=== PATIENT | female | born 1945 | race Caucasian/White ===

== ENCOUNTER 2017-09-18 00:46 | Inpatient (IN) | payer MEDICARE, OTHER ==
[2017-09-17 14:51] LABS: INR 1.01
[~2017-09-18] VITALS: Ht 157.5 cm; Wt 57.2 kg
[2017-09-18] VITALS (13 sets, daily range): BP systolic 80–150; BP diastolic 44–90
[~2017-09-18 00:46] MED LIST: ACET500T68 PO; ATOR20TA22 PO; BIMA2.5D5 OS; BRIM5DRO8 OS; DORZ10DR8 OS; ENAL2.5T52 PO; FLAX100041 PO; INSTAFLEX PO; LACT1CAP4 PO; OMEG-11 PO; PREVAGEN PO; TIMO5DRO8 OS; TRAM-420 PO
--- NOTE | 2017-09-18 04:43 | LEVENE H&P ---
DATE OF ADMISSION: September 18, 2017 IDENTIFICATION/CHIEF COMPLAINT The patient is a 72-year-old woman with a chief complaint of right knee pain. HISTORY OF PRESENT ILLNESS Patient has a longstanding history of knee arthritis, progressively painful and debilitating, refractory to conservative care. Surgery is indicated to relieve symptoms after failure of nonoperative measures. PAST MEDICAL HISTORY Notable for hypertension controlled on medication. ALLERGIES BACITRACIN OINTMENT. CURRENT MEDICATIONS 1. Tramadol as needed. 2. Enalapril 2.5 mg per day. 3. Atorvastatin 20 mg p.o. daily. 4. Timolol eye drops 5 mg. 5. Dorzolamide eye drops 10 mL. 6. Brimonidine tartrate 10 mL. 7. Lumigan 2.5 mL at night. PAST SURGICAL HISTORY Notable for carpal tunnel release x two, rotator cuff surgery and cataract operation. She does have a remote history of an MRSA treated with five surgeries. SOCIAL HISTORY Negative for tobacco and alcohol use. FAMILY HISTORY Notable for mother with arthritis and father with heart disease. REVIEW OF SYSTEMS Noncontributory. PHYSICAL EXAMINATION GENERAL: This is a healthy female. HEENT: Normocephalic, atraumatic. NECK: Supple. LUNGS: Clear. HEART: Regular. ABDOMEN: Soft. ORTHOPEDIC EXAMINATION: The right knee is stiff at end range of motion. Effusion is present. Skin condition is good. Extensor function is intact. Knee is grossly stable. RADIOGRAPHIC DATA Radiographs demonstrate end-stage knee arthritis. ASSESSMENT Right knee end-stage degenerative joint disease, progressively painful and debilitating, refractory to conservative care. PLAN Per patient request, we are going to proceed with total knee arthroplasty. The nature of this procedure, risks, benefits, the anticipated rehabilitative course were reviewed. Risks of the procedure include but are not limited to , major medical or anesthetic complication, infection, neurovascular injury , blood transfusion, stiffness, scarring, fracture, tendon rupture, instability , implant loosening, migration or failure, persistent or recurrent pain, need for additional surgery and other unforeseen. She understands and wishes to proceed. A signed permit is placed in the chart. No guarantees are given or implied. [facility]
[2017-09-18] MEDS ORDERED: ACETAMINOPHEN 500 MG TAB PO ONE (07:48)
[2017-09-18] MEDS ORDERED: PROPOFOL EMUL(*) 10MG/ML 20 ML 20 ML ONE (07:50)
[2017-09-18] MEDS ORDERED: DEXAMETHASONE SOD 4 MG/ML VIAL ONE (07:50)
[2017-09-18] MEDS ORDERED: METOCLOPRAMIDE 10 MG/2 ML SDV ONE (07:50)
[2017-09-18] MEDS ORDERED: ONDANSETRON 4 MG/2 ML VIAL ONE (07:50)
[2017-09-18] MEDS ORDERED: fentaNYL CITR 100 MCG/2 ML AMP ONE (07:55)
[2017-09-18] MEDS ORDERED: VANCOMYCIN 1 GM ADDVIAL 1 GM in NS(*) 0.9% 250 ML ADDVAN BAG 250 ML IVPB ONE (10:00)
[2017-09-18] MEDS ORDERED: DIAZEPAM 5 MG TAB PO PRN (12:00)
[2017-09-18] MEDS ORDERED: FLUSH 10 ML SYR IVP PRN (12:00)
[2017-09-18] MEDS ORDERED: diphenhydrAMINE 25 MG CAP PO PRN (12:00)
[2017-09-18] MEDS ORDERED: PROMETHAZINE 25 MG/ML 1 ML AMP IVP PRN (12:00)
[2017-09-18] MEDS ORDERED: ACETAMINOPHEN 325 MG TAB PO PRN (12:00)
[2017-09-18] MEDS ORDERED: NORMOSOL R SOLN(*) 1000 ML BAG 1,000 ML IV PRN ×3 (12:00→12:15)
[2017-09-18] MEDS ORDERED: diphenhydrAMINE 50 MG/ML VIAL IVP PRN (12:00)
[2017-09-18] MEDS ORDERED: ZOLPIDEM TARTRATE 5 MG TAB PO PRN (12:00)
[2017-09-18] MEDS ORDERED: BENZOCAINE/MENTHOL 1 EACH LOZG PO PRN (12:00)
[2017-09-18] MEDS ORDERED: BISACODYL 10 MG SUPP PR PRN (12:00)
[2017-09-18] MEDS ORDERED: MORPHINE 2 MG/ML SYR IVP PRN (12:00)
[2017-09-18] MEDS ORDERED: CELECOXIB 200 MG CAP PO ONE (12:15)
[2017-09-18] MEDS ORDERED: MIDAZOLAM 2 MG/2 ML VIAL IVP PRN (12:15)
[2017-09-18] MEDS ORDERED: PREGABALIN 75 MG CAPSULE PO ONE (12:15)
[2017-09-18] MEDS ORDERED: LIDOCAINE/SOD BICARB 8.4% SYR ID ONE (12:15)
[2017-09-18] MEDS ORDERED: FAMOTIDINE 20 MG TAB PO ONE (12:15)
[2017-09-18] MEDS ORDERED: TRANEXAMIC AC 1000 MG/10ML SDV 1,000 MG in DEXTROSE 5% 50 ML BAG 50 ML IV ONE (12:15)
[2017-09-18] MEDS ORDERED: cloNIDine EPIDUR INJ 100MCG/ML 40 MCG, ROPIVACAINE 0.5% 20 ML VIAL 25 ML, EPINEPHrine H... INJ ONE (12:15)
--- NOTE | 2017-09-18 13:43 | LEVENE TKA ---
EVENT DATE: September 18, 2017 SURGEON: Aaron Zhao MD ANESTHESIA: General plus spinal. INK TECHNICIAN: Pietro Castillo PA-C PREOPERATIVE DIAGNOSIS Right knee degenerative joint disease (DJD). POSTOPERATIVE DIAGNOSIS Right knee degenerative joint disease (DJD). PROCEDURE PERFORMED Right total knee arthroplasty. ESTIMATED BLOOD LOSS Minimal. DRAINS None. SPECIMENS None. COMPLICATIONS None. TOURNIQUET TIME 51 minutes. IMPLANTS USED [employer] Triathlon knee system, a size 4 right PS femur, a size 4 standard tibial baseplate, a 33 mm universal symmetric all polyethylene patella button, a 13 mm PS tibial tray insert, X3 polyethylene. INDICATIONS The patient is 72-year-old woman with intractable pain related to end-stage knee arthritis. Surgery is indicated to relieve symptoms after failure of nonoperative measures. DESCRIPTION OF PROCEDURE The patient was taken to the operating room and placed supine on the operating table. A spinal block was administered by the anesthesiologist. General anesthesia was induced. Antibiotics and TXA were administered IV. The right lower extremity was prepped and draped in the usual sterile fashion for orthopedic surgery. The limb was exsanguinated with an Esmarch bandage. The tourniquet was inflated to 250 mmHg. A midline longitudinal incision was made and carried down through the skin and subcutaneous tissue to the extensor mechanism. A full-thickness flap was developed far enough medially to allow medial parapatellar arthrotomy to be performed. The patella was everted. The knee was brought into a flexed position. The fat pad, anterior horns of the menisci and cruciate ligaments were debrided. Subperiosteal capsular release was performed circumferentially around the upper plateau and medial release performed. A step drill was used to enter the distal femur. A 10-inch long alignment guide was used to engage the isthmus. Cut set for 6 degrees of valgus over the anatomic axis. A 10 mm resection block was applied and pinned and cut was made with an oscillating saw. The patient has a very complex deformity. 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 The epicondylar axis is identified for rotational alignment and marked neutral to 3 degrees of external rotation is selected. The posterior condyles cannot be utilized due to the hypoplasia of the lateral femoral condyle. A size 4 was optimal without risk of notching. The four-in-one cutting block was pinned. Anterior, posterior, posterior chamfer and anterior chamfer cuts were made respectively. A PS block was applied and centered mediolateral and the bone was removed for the box. The trial femur had nice [id number] fit. Attention was turned to tibial preparation. The extramedullary guide was applied and positioned for varus, valgus, posterior slope and rotation. This is set to take 9 mm off the intact lateral tibial plateau. The block was pinned. Extramedullary check was made and the cut was made with an oscillating saw. After osteophyte removal and removal of loose debris and copious scar tissue, gaps were balanced and symmetric with no additional formal releases required. The size 4 tibial base provides good coverage without soft tissue overhang. There is some mild posterior lateral overhang but this is felt better due to severe osteopenia and risks of implant subsidence with an undersized component. This was inserted along with trial femur and the knee was brought to full extension. The patella was taken from a severely everted position. The small fractured ossicles at the lateral margin were removed from the soft tissue and then a free hand cut is made basically just above the tendon leaving about 12-15 mm of residual patella. A 33 button provides optimal bony coverage without soft tissue overhang. The lug holes were drilled. The patella tracks nicely with the no-touch technique. Final tibial preparation consisted of ensuring appropriate rotational and translational position of the component. The box was reamed and fin was punched. The surface was lavaged. A mix of polymethylmethacrylate was made and the components were cemented in a single stage. After the cement was fully polymerized, the tourniquet was deflated. Hemostasis was assured. The wound was copiously lavaged. The 13 PS tibial tray liner allows the knee to drop to full extension without hyperextension and provides optimal soft tissue balance and stability. The tray was lavaged and dried and the liner was locked into the baseplate. The joint was reduced. The arthrotomy was closed with #2 Ethibond, the subcutaneous with 3-0 Vicryl and the skin with surgical sun. Xeroform was applied followed by a dry, sterile dressing and a compression wrap. The patient was awakened from the anesthesia and taken to the recovery room in stable condition, having tolerated the procedure well. Plan for standard TKA rehab protocol. [facility]
--- NOTE | 2017-09-18 14:18 | RADIOLOGY IMAGING REPORT ---
FACILITY: [facility] PATIENT NAME: Lindsay Zambrano : 1945 MR: [id number] V: [id number] EXAM DATE: ORDERING PHYSICIAN: SAURABH ARMSTRONG TECHNOLOGIST: Location: [facility] Patient: Lindsay Zambrano : 1945 Visit/Account:[id number] Date of Sevice: 09/18/2017 Exam type: KNEE LIMITED RIGHT History: S/P TOTAL KNEE ARTHROPLASTY CHECK PLACEMENT Comparison: None. Findings: AP and lateral views of the right knee demonstrate a right knee arthroplasty in good anatomic alignme nt. Soft tissue gas and skin sun project over the anterior aspect of the right knee IMPRESSION: 1. As above Report Dictated By: Hilary Lynn MD at 09/18/2017 2:11 PM Report E-Signed By: Hilary Lynn MD at 09/18/2017 2:12 PM WSN:[id number]
[2017-09-18] MEDS: APAP/HYDROCODONE 325/7.5 TAB PO PRN ×2 (15:11→20:37)
--- NOTE | 2017-09-18 15:54 | Hospitalist Progress Note ---
Subjective Progress Notes Subjective No cp/sob. 1700cc of crystalloid, TXA, ephedrine, and dexamethasone given intra -op. Lowest pressure was 70/40, intra-op. Physical Exam Vital Signs Date Time Temp Pulse Resp B/P (MAP) Pulse Ox O2 Delivery O2 Flow Rate FiO2 09/18/17 15:00 80 129/76 (93) 95 09/18/17 14:09 Nasal Cannula 0.5 09/18/17 13:58 97.7 20 Intake and Output 09/19/17 07:00 Intake Total 2175 ml Balance 2175 ml Intake Oral 300 ml IV Total 1875 ml # Voids 1 General Appearance: Alert, Awake, No Acute Distress Cardiovascular: Regular Rate and Rhythm Respiratory: Clear to Auscultation Extremities: No Edema Assessment and Plan Problems: (1) Status post knee replacement Status: Acute Assessment & Plan: No CV/pulmonary issues. The patient denies a h/o DVT/PE, but has had gastric ulcer related to NSAIDs. She will be on Xarelto for VTE prophylaxis. (2) HTN (hypertension) Status: Chronic Assessment & Plan: Continue chronic enalapril with parameters. (3) Glaucoma Status: Chronic Assessment & Plan: Continue chronic Lumigan, Brimonidine, and Dorzolamide/ Timolol eye drops. (4) Hyperlipemia Status: Chronic Assessment & Plan: Continue chronic Lipitor. (5) PUD (peptic ulcer disease) Status: Chronic Assessment & Plan: Continue chronic Zantac. See above. (6) History of subdural hematoma Status: Resolved Assessment & Plan: Secondary to a fall from standing that did not require intervention. Exam Sepsis Risk: No Definite Risk Problem Qualifiers (1) Status post knee replacement: Laterality: right Qualified Codes: Z96.651 - Presence of right artificial knee joint PETER MOSQUEDA MD Sep 18, 2017 15:54
[2017-09-18] MEDS: CELECOXIB 200 MG CAP PO SCH (16:50)
[2017-09-18] MEDS: DORZOLAMIDE/TIMOLOL 10 ML BTL OS SCH (20:37)
[2017-09-18] MEDS: BRIMONIDINE TAR 0.15% 5 ML BTL OS SCH (20:38)
[2017-09-18] MEDS: BIMATOPROST 2.5 ML BTL 2.5 ML BTL OS SCH (20:38)
[2017-09-18] MEDS ORDERED: ATORVASTATIN 10 MG TAB PO SCH (21:00)
[2017-09-18] MEDS: VANCOMYCIN IVPB SCH (22:09)
[2017-09-18] MEDS: ADDVIAL IVPB SCH (22:09)
[2017-09-18] MEDS: NS 0.9% IVPB SCH (22:09)
[2017-09-18] MEDS ORDERED: NS(*) 0.9% 250 ML BAG 250 ML ONE (22:19)
[2017-09-19 00:10] VITALS: BP 155/84
[2017-09-19] MEDS: APAP/HYDROCODONE 325/7.5 TAB PO PRN ×5 (01:36→20:42)
[2017-09-19 03:30] VITALS: BP 104/71
[2017-09-19 08:16] VITALS: BP 143/75
[2017-09-19] MEDS: CELECOXIB 200 MG CAP PO SCH ×2 (08:18→16:20)
[2017-09-19] MEDS: RIVAROXABAN 10 MG TAB PO SCH (08:18)
[2017-09-19] MEDS: ATORVASTATIN 10 MG TAB PO SCH (08:19)
[2017-09-19] MEDS: RANITIDINE HCL 150 MG TAB PO SCH (08:19)
[2017-09-19] MEDS: BRIMONIDINE TAR 0.15% 5 ML BTL OS SCH ×2 (08:20→20:41)
[2017-09-19] MEDS: DORZOLAMIDE/TIMOLOL 10 ML BTL OS SCH ×2 (08:21→20:42)
--- NOTE | 2017-09-19 09:15 | Hospitalist Progress Note ---
Subjective Progress Notes Subjective She has no complaints this morning. She had no acute events overnight. Patient Complains of: Cardiovascular: No: Chest Pain Respiratory: No: Shortness of Breath Physical Exam Vital Signs Date Time Temp Pulse Resp B/P (MAP) Pulse Ox O2 Delivery O2 Flow Rate FiO2 09/19/17 03:30 97.9 85 16 104/71 (82) 96 Nasal Cannula 1.0 Intake and Output 09/20/17 06:59 Intake Total 160 ml Balance 160 ml Intake Oral 160 ml General Appearance: Alert, Awake, No Acute Distress, Afebrile Neuro: No Gross deficits Cardiovascular: Regular Rate and Rhythm Respiratory: No Respiratory Distress, Clear to Auscultation GI: Soft and Non-Tender Psych: Alert & Oriented X3, Appropriate Mood & Affect Assessment and Plan Problems: (1) Status post knee replacement Status: Acute Assessment & Plan: No CV/pulmonary issues. The patient denies a h/o DVT/PE, but has had gastric ulcer related to NSAIDs. She will be on Xarelto for VTE prophylaxis. (2) HTN (hypertension) Status: Chronic Assessment & Plan: Continue chronic enalapril with parameters. (3) Glaucoma Status: Chronic Assessment & Plan: Continue chronic Lumigan, Brimonidine, and Dorzolamide/ Timolol eye drops. (4) Hyperlipemia Status: Chronic Assessment & Plan: Continue chronic Lipitor. (5) PUD (peptic ulcer disease) Status: Chronic Assessment & Plan: Continue chronic Zantac. See above. (6) History of subdural hematoma Status: Resolved Assessment & Plan: Secondary to a fall from standing that did not require intervention. Exam Sepsis Risk: No Definite Risk Problem Qualifiers (1) Status post knee replacement: Laterality: right Qualified Codes: Z96.651 - Presence of right artificial knee joint JULIO DE JESUS [employer] Sep 19, 2017 09:14
[2017-09-19 09:52] VITALS: Ht 157.5 cm; Wt 57.2 kg
[2017-09-19] MEDS: VANCOMYCIN IVPB SCH ×2 (10:00→21:27)
[2017-09-19] MEDS: NS 0.9% IVPB SCH ×2 (10:00→21:27)
[2017-09-19] MEDS: ADDVIAL IVPB SCH ×2 (10:00→21:27)
[2017-09-19] MEDS: ENALAPRIL MALEATE 5 MG TAB PO SCH (10:22)
[2017-09-19 13:27] VITALS: BP 133/66
[2017-09-19 18:55] VITALS: BP 108/78
[2017-09-19] MEDS: BIMATOPROST 2.5 ML BTL 2.5 ML BTL OS SCH (20:41)
[2017-09-19 22:35] VITALS: BP 157/92
[2017-09-20] MEDS: APAP/HYDROCODONE 325/7.5 TAB PO PRN ×4 (01:44→20:19)
[2017-09-20 02:09] VITALS: BP 135/85
[2017-09-20 06:10] LABS: PLATELET COUNT, AUTOMATED 254 K/uL (150-450)
[2017-09-20] MEDS: ENALAPRIL MALEATE 5 MG TAB PO SCH (09:00)
[2017-09-20 09:15] VITALS: BP 129/85
[2017-09-20] MEDS: CELECOXIB 200 MG CAP PO SCH ×2 (09:17→17:35)
[2017-09-20] MEDS: RIVAROXABAN 10 MG TAB PO SCH (09:17)
[2017-09-20] MEDS: RANITIDINE HCL 150 MG TAB PO SCH (09:18)
[2017-09-20] MEDS: ATORVASTATIN 10 MG TAB PO SCH (09:18)
[2017-09-20] MEDS: BRIMONIDINE TAR 0.15% 5 ML BTL OS SCH ×2 (09:19→20:19)
[2017-09-20] MEDS: DORZOLAMIDE/TIMOLOL 10 ML BTL OS SCH ×2 (09:19→20:19)
--- NOTE | 2017-09-20 11:10 | Hospitalist Progress Note ---
Subjective Progress Notes Subjective She has no complaints this morning. She had no acute events overnight. Patient Complains of: Cardiovascular: No: Chest Pain Respiratory: No: Shortness of Breath Physical Exam Vital Signs Date Time Temp Pulse Resp B/P (MAP) Pulse Ox O2 Delivery O2 Flow Rate FiO2 09/20/17 09:15 97.6 87 22 129/85 (100) 94 Nasal Cannula 2.0 Intake and Output 09/21/17 00:59 Intake Total 120 ml Balance 120 ml Intake Oral 120 ml # Voids 1 # [place] 1 General Appearance: Alert, Awake, No Acute Distress, Afebrile Neuro: No Gross deficits Cardiovascular: Regular Rate and Rhythm Respiratory: No Respiratory Distress, Clear to Auscultation Psych: Alert & Oriented X3, Appropriate Mood & Affect Result Diagram: 09/20/1753009/20/17530 Assessment and Plan Problems: (1) Status post knee replacement Status: Acute Assessment & Plan: No CV/pulmonary issues. The patient denies a h/o DVT/PE, but has had gastric ulcer related to NSAIDs. She will be on Xarelto for VTE prophylaxis. (2) HTN (hypertension) Status: Chronic Assessment & Plan: Continue chronic enalapril with parameters. (3) Glaucoma Status: Chronic Assessment & Plan: Continue chronic Lumigan, Brimonidine, and Dorzolamide/ Timolol eye drops. (4) Hyperlipemia Status: Chronic Assessment & Plan: Continue chronic Lipitor. (5) PUD (peptic ulcer disease) Status: Chronic Assessment & Plan: Continue chronic Zantac. See above. (6) History of subdural hematoma Status: Resolved Assessment & Plan: Secondary to a fall from standing in 2013 that did not require intervention. Exam Sepsis Risk: No Definite Risk Problem Qualifiers (1) Status post knee replacement: Laterality: right Qualified Codes: Z96.651 - Presence of right artificial knee joint JULIO DE JESUS [facility] Sep 20, 2017 11:10
[2017-09-20] MEDS: MAGNESIUM HYDROXIDE* 30ML UDCP PO PRN ×2 (12:03→20:19)
[2017-09-20 16:12] VITALS: BP 118/96
[2017-09-20] MEDS: BIMATOPROST 2.5 ML BTL 2.5 ML BTL OS SCH (20:19)
[2017-09-20 20:25] VITALS: BP 131/85
[2017-09-21 01:05] VITALS: BP 146/89
[2017-09-21] MEDS: APAP/HYDROCODONE 325/7.5 TAB PO PRN ×2 (01:23→11:57)
[2017-09-21 07:15] VITALS: BP 147/94
[2017-09-21] MEDS: CELECOXIB 200 MG CAP PO SCH (07:21)
[2017-09-21] MEDS ORDERED: HYDR-4308 PO (07:54)
[2017-09-21] MEDS ORDERED: RIV10 PO (07:57)
[2017-09-21] MEDS ORDERED: ENAL-1 PO (08:21)
[2017-09-21] MEDS: RIVAROXABAN 10 MG TAB PO SCH (08:30)
[2017-09-21] MEDS: RANITIDINE HCL 150 MG TAB PO SCH (08:30)
[2017-09-21] MEDS: ATORVASTATIN 10 MG TAB PO SCH (08:30)
[2017-09-21] MEDS: BRIMONIDINE TAR 0.15% 5 ML BTL OS SCH (08:31)
[2017-09-21] MEDS: DORZOLAMIDE/TIMOLOL 10 ML BTL OS SCH (08:31)
--- NOTE | 2017-09-21 08:56 | Hospitalist Progress Note ---
Subjective Progress Notes Subjective She has no complaints this morning. She had no acute events overnight. Patient Complains of: Cardiovascular: No: Chest Pain Respiratory: No: Shortness of Breath Physical Exam Vital Signs Date Time Temp Pulse Resp B/P (MAP) Pulse Ox O2 Delivery O2 Flow Rate FiO2 09/21/17 08:15 Nasal Cannula 09/21/17 08:06 95 0.5 09/21/17 07:15 98.9 82 18 147/94 (111) Intake and Output 09/22/17 06:59 Intake Total 240 ml Balance 240 ml Intake Oral 240 ml # Voids 1 General Appearance: Alert, Awake, No Acute Distress, Afebrile Neuro: No Gross deficits Cardiovascular: Regular Rate and Rhythm Respiratory: No Respiratory Distress, Clear to Auscultation GI: Soft and Non-Tender Psych: Alert & Oriented X3, Appropriate Mood & Affect Result Diagram: 09/20/17 0531 09/20/17 05 Assessment and Plan Problems: (1) Status post knee replacement Status: Acute Assessment & Plan: No CV/pulmonary issues. The patient denies a h/o DVT/PE, but has had gastric ulcer related to NSAIDs. She will be on Xarelto for VTE prophylaxis. She will transfer to SNF today in [place] for further rehab. (2) HTN (hypertension) Status: Chronic Assessment & Plan: Continue chronic enalapril. We have increased her dose to 5mg secondary to increase blood pressures. (3) Glaucoma Status: Chronic Assessment & Plan: Continue chronic Lumigan, Brimonidine, and Dorzolamide/ Timolol eye drops. (4) Hyperlipemia Status: Chronic Assessment & Plan: Continue chronic Lipitor. (5) PUD (peptic ulcer disease) Status: Chronic Assessment & Plan: Continue chronic Zantac. See above. (6) History of subdural hematoma Status: Resolved Assessment & Plan: Secondary to a fall from standing in 2013 that did not require intervention. Exam Sepsis Risk: No Definite Risk Problem Qualifiers (1) Status post knee replacement: Laterality: right Qualified Codes: Z96.651 - Presence of right artificial knee joint JULIO DE JESUS [facility] Sep 21, 2017 08:56
[2017-09-21] MEDS ORDERED: ENALAPRIL MALEATE 5 MG TAB PO SCH (09:00)
== END 2017-09-21 12:05 | DRG 470 ==
LOC: OR 00:46 → MED 13:55
PROVIDERS: ADMIT Orthopaedic Surgery; ATTEND Orthopaedic Surgery
PROC: 0SRC0J9 Replacement of Right Knee Joint with Synthetic Substitute, Cemented, Open Approach (ICD-10-PCS; principal; 2017-09-18 09:36)
DX: M17.11 Unilateral primary osteoarthritis, right knee (principal); I10 Essential (primary) hypertension; H40.9 Unspecified glaucoma; E78.5 Hyperlipidemia, unspecified; K27.7 Chronic peptic ulcer, site unspecified, without hemorrhage or perforation; Z86.14 Personal history of Methicillin resistant Staphylococcus aureus infection
CPT/HCPCS: 36415; 82310; 82374; 82435; 82565; 82947; 84132; 84295; 84520; 85025; 85610; 86850; 86900; 86901; 97161; A9270; C1713; C1776; J0171; J0735; J1100; J1885; J2250; J2405; J2704; J2765; J2795; J3010; J3370; J7050; J7060